=== PATIENT | male | born 1980 | race American Indian/Alaskan Native ===

== ENCOUNTER 2018-07-15 10:44 | Emergency (ER) | payer SELFPAY ==
[2018-07-15 10:54] VITALS: BP 157/93
--- NOTE | 2018-07-15 11:26 | Emergency Department Report ---
ED Rash HPI - HPI Chief Complaint: Skin Rash Stated Complaint: RASH Time Seen by Provider: 07/15/18 11:11 Duration: progressively worsening 3 weeks Location: Upper Extremities, Lower Extremities Suspected Cause: Unknown Rash Symptoms: Yes Itching, Yes Blistering, No Facial Swelling, No Tongue/Oral Swelling, No Breathing Difficulties, No Choking Sensation, No Wheezing/Dyspnea, No Peeling, No Fever, No Lightheaded, No Malaise, No Myalgias Severity: moderate Other History: Patient states he has had a dry scaly rash is very itchy the left upper and lower extremity for the past several weeks. Patient states that the rash on the left lower extremity particularly behind the knee and the left thigh now has small areas of blistering. She denies any new allergens that he may have come in contact with. 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 ED Review of Systems ROS: Stated complaint: RASH Other details as noted in HPI Comment: All other systems reviewed and negative ED Past Medical Hx - Past Medical History Previous Medical History?: Yes Hx Hypertension: Yes - Surgical History Past Surgical History?: No - Social History Smoking Status: Current Every Day Smoker Substance Use Type: Marijuana - Medications Home Medications: Home Medications Medication Instructions Recorded Confirmed Last Taken Type Clindamycin [Clindamycin CAP] 300 mg PO Q8H 7 Days cap 07/15/18 Unknown Rx Prednisone [predniSONE 10 mg 10 mg PO .TAPER #1 tab.ds.pk 07/15/18 Unknown Rx (6-Day Pack, 21 Tabs)] Triamcinolone 0.1% [Kenalog 0.1% 1 applic TP TID #30 g 07/15/18 Unknown Rx CREAM] Rash Exam - Exam General: Vital signs noted. No distress. Alert and acting appropriately. HEENT: No Periorbital Edema, No Conjuctival Injection, No Chemosis, No Perioral Edema, No Tongue Edema, No Uvular Edema, No Compromised Airway, No Drooling Lungs: Yes Good Air Exchange (Normal Breath Sounds), No Wheezes, No Ronchi, No Stridor, No Cough, No Labored Respirations, No Retractions, No Use of Accessory Muscles, No Other Abnormal Lung Sounds Heart: Yes Regular, No Murmur Skin: Yes Maculopapular Rash, Yes Tenderness, Yes Erythema, Yes Other (patient' s shows a maculopapular rash that is dry and scaly in the left antecubital area as well as the posterior knee and distal thigh and also on the left side. The lower extremity rash has some small areas of blistering. There is some surrounding erythema and warmth.) Other: Positive: Abdomen Normal, Neurologic Normal, Musculoskeletal Normal ED Course Vital Signs 07/15/18 10:51 Temperature 98.5 F Pulse Rate 83 Respiratory 14 Rate Blood Pressure 157/93 O2 Sat by Pulse 97 Oximetry ED Medical Decision Making - Medical Decision Making Patient to be referred to dermatology. Patient will be treated for allergic reaction and dermatitis but also be started on antibiotics to cover for secondary infection particularly in the left lower extremity. Critical care attestation.: If time is entered above; I have spent that time in minutes in the direct care of this critically ill patient, excluding procedure time. ED Disposition Clinical Impression: Dermatitis, Cellulitis Disposition: - TO HOME OR SELFCARE Is pt being admited?: No Does the pt Need Aspirin: No Condition: Stable Instructions: Contact Dermatitis (ED), Cellulitis (ED) Additional Instructions: Please take Benadryl 25 mg [id number] every 4 hours for itching Referrals: DANETTE SHELL MD [Staff Physician] - 3-5 Days Time of Disposition: 11:26
== END 2018-07-15 11:32 | disposition home or self-care (01) ==
LOC: ED 10:44
DX: L30.9 Dermatitis, unspecified (principal); L03.114 Cellulitis of left upper limb; L03.116 Cellulitis of left lower limb; I10 Essential (primary) hypertension; F17.200 Nicotine dependence, unspecified, uncomplicated; F12.10 Cannabis abuse, uncomplicated
CPT/HCPCS: 99282